=== PATIENT | female | born 1990 | race Hispanic/Latino ===

== ENCOUNTER 2023-03-31 06:50 | Day surgery (SDC) | payer BC ==
[2023-03-27 15:56] LABS: BASOPHILS % (AUTO) 0.7 % (0.0-5.0); EOSINOPHILS % (AUTO) 1.1 % (0.0-8.0); LYMPHOCYTES % (AUTO) 23.3 % (21.0-51.0); MEAN CORPUSCULAR HEMOGLOBIN 29.9 pg (27.0-33.0); MEAN CORPUSCULAR HGB CONC 34.1 g/dL (32.0-36.0); MEAN CORPUSCULAR VOLUME 87.6 fL (79-99); MONOCYTES % (AUTO) 8.3 % (3.0-13.0); NEUTROPHILS % (AUTO) 66.3 % (40.0-77.0); PLATELET COUNT (AUTO) 274 K/uL (130-400); RED BLOOD CELL COUNT(AUTO) 4.68 MIL/uL (4.00-5.50); RED CELL DISTRIBUTION WIDTH 11.8 % (11.0-15.5); WHITE BLOOD COUNT (AUTO) 9.1 K/uL (4.8-10.8)
[2023-03-27 16:09] VITALS: BP 140/98
[~2023-03-31] VITALS: Ht 162.6 cm; Wt 107.5 kg
[2023-03-31] VITALS (18 sets, daily range): BP systolic 115–157; BP diastolic 70–96
[2023-03-31] MEDS ORDERED: METHYLENE BLUE 5 MG/ML AMP ONE (07:02)
[2023-03-31] MEDS ORDERED: BUPIVACAINE/PF 0.25% 30ML VIAL IJ ONE (07:02)
[2023-03-31] MEDS ORDERED: CEFAZOLIN SODIUM 2 GM VIAL ONE (07:23)
[2023-03-31] MEDS ORDERED: LACTATED RINGERS 1000ML 1,000 ML IV ONE (07:23)
[2023-03-31] MEDS ORDERED: FAMOTIDINE 20MG VIAL IV ONE (07:56)
[2023-03-31] MEDS ORDERED: LIDOCAINE PF 100MG/5ML (2%) SYRINGE 5ML ONE (08:03)
[2023-03-31] MEDS ORDERED: ROCURONIUM 10MG/1ML SYR 10 MG/ML ML ONE (08:04)
[2023-03-31] MEDS ORDERED: PROPOFOL 10 MG/ML 20ML VIAL IV ONE (08:04)
[2023-03-31] MEDS ORDERED: FENTANYL CITRATE PF 50 MCG/1 ML 2ML VIAL ONE ×2 (08:04→09:13)
[2023-03-31] MEDS ORDERED: MIDAZOLAM HCL 1 MG/ML 2ML VIAL ONE (08:04)
[2023-03-31] MEDS ORDERED: GLYCOPYRROLATE 1 MG/5 ML SYRINGE ONE (08:04)
[2023-03-31] MEDS ORDERED: CEFAZOLIN SODIUM 2 GM VIAL IVPB ONE (08:15)
[2023-03-31] MEDS ORDERED: ONDANSETRON 4MG INJ ONE (08:29)
[2023-03-31] MEDS ORDERED: NEOSTIGMINE 5MG/5ML SYR IV ONE (09:34)
[2023-03-31] MEDS ORDERED: MEPERIDINE-PF 25 MG/ML SYG ONE (10:07)
== END 2023-03-31 11:20 | disposition home or self-care (01) ==
LOC: DAH 06:50
PROVIDERS: ATTEND Obstetrics & Gynecology
DX: R10.2 Pelvic and perineal pain (principal); Z20.822 Contact with and (suspected) exposure to COVID-19; G89.29 Other chronic pain; D25.2 Subserosal leiomyoma of uterus; N92.0 Excessive and frequent menstruation with regular cycle; K21.9 Gastro-esophageal reflux disease without esophagitis
CPT/HCPCS: 86900 ×2; 87426; 84703; 85025; 86850 ×2; 86901 ×2; 36415 ×2; 58350; 81025; A6260; A4663; J7030; A4351; J7120; J3490 ×3; J3010 ×2; J2710; J2001; J2250; J2704; J2405; J2175; J0690 ×2; A4649; A4215; A4223; A4222; A4221; A4600; A4510; Q9968